=== PATIENT | male | born 1940 | race Caucasian/White ===

== ENCOUNTER 2017-12-18 14:48 | Emergency (ER) | payer MEDICARE, BC ==
[~2017-12-18] VITALS: Ht 182.9 cm; Wt 87.1 kg
[~2017-12-18 14:48] MED LIST: ALLO100T70 PO; BENA10TA4 PO; BUSP15TA69 PO; CYCL-277 PO; DILT180C11 PO; FLU60SYR30 IM ONLY; INDO75CA PO; OMEP-218 PO; PRAV20TA65 PO; PRED20TA6 PO; TAMS0.4C25 PO
[2017-12-18] MEDS ORDERED: PRED20TA6 PO (14:57)
--- NOTE | 2017-12-18 15:05 | ER Report ---
History and Physical Time Seen By MD: 14:55 Hx. of Stated Complaint: RIGHT ANKLE INJURY HPI/ROS CHIEF COMPLAINT: R ANKLE PAIN HISTORY OF PRESENT ILLNESS: Pt was walking in his crocks and accidentally inverted his right foot which caused immediate pain in his right lateral ankle. Pt denies pain in foot or knee. No numbness. REVIEW OF SYSTEMS: Neuro: no numbness or parathesias Musculoskeletal: + ankle pain Allergies: Coded Allergies: Penicillins (Verified Allergy, Unknown, 06/03/17) Sulfa (Sulfonamide Antibiotics) (Verified Allergy, Unknown, 06/03/17) benazepril (Verified Allergy, Unknown, 06/03/17) Home Meds Reported Medications Prednisone (PREDNISONE) 20 Mg Tablet, 20 MG PO QDAY, TAB 12/18/17 Tamsulosin Hcl (FLOMAX) 0.4 Mg Cap.er.24h, 0.4 MG PO QDAY, CAP 06/03/17 Buspirone Hcl (BUSPIRONE HCL) 15 Mg Tablet, 15 MG PO BID 06/03/17 Discontinued Reported Medications Indomethacin (INDOMETHACIN) 75 Mg Capsule.er, 75 MG PO QDAY 06/03/17 Discontinued Scripts Diltiazem HCl (Diltiazem 24Hr Cd) 180 Mg Cap.er.24h, 1 CAP PO DAILY, #30 CAP 0 Refills Prov:ZACH WATTS MD 06/02/17 Past Medical/Surgical History Pmhx: Bulous pemphigus Pshx: neg Reviewed Nurses Notes: Yes Old Medical Records Reviewed: Yes Smoking Status: Former Smoker Hx Alcohol Use: No Constitutional Vital Sign - Last 24 Hours 12/18/17 12/18/17 14:55 15:52 Temp 98.1 Pulse 91 69 Resp 18 14 B/P (MAP) 148/69 141/93 (109) Pulse Ox 93 90 O2 Delivery Room Air Room Air Physical Exam General appearance: alert no distress Right ankle: There is moderate swelling left lateral maleolus . There is no obvious deformity to the ankle. There is moderate tenderness to the lateral malleolus. Ankle joint is stable and there is no tenderness over the achilles tendon. The foot is non-tender without swelling. Neurologic exam: The patient has normal sensation distal to the injury. Vascular exam: Normal pulses and capillary refill in the foot DIFFERENTIAL DIAGNOSIS: After history and physical exam differential diagnosis was considered for ankle injury including sprain, fracture, dislocation and soft tissue injury. Medical Decision Making ED Course/Re-evaluation ED Course Will xray to rule out fx. PT has no fibular head tenderness so will limit xray to ankle x 12/18/2017 3:43:26 pm xray stable for bone but suspect ligament injury. pt refusing crutches so will place in airsplint and follow up with ortho Decision to Disposition Date: Dec 18, 2017 Decision to Disposition Time: 15:43 Depart Departure Latest Vital Signs Vital Signs Date Time Temp Pulse Resp B/P (MAP) Pulse Ox O2 Delivery O2 Flow Rate FiO2 12/18/17 15:52 69 14 141/93 (109) 90 Room Air 12/18/17 14:55 98.1 Impression: Primary Impression: SPRAIN OF UNSPECIFIED LIGAMENT OF RIGHT ANKLE, INIT ENCNTR Condition: Improved Disposition: HOME OR SELF-CARE Referrals: ZACH WATTS MD (PCP) [facility] Days Patient Instructions: Ankle Sprain (GEN) Additional Instructions: You do not have a fracture of your ankle. You could have injured a ligament. Use air cast for comfort and support Follow up with orthopedics if not improving. Ice, elevate and rest your ankle NIVIA SETHI DO Dec 18, 2017 15:05
--- NOTE | 2017-12-18 15:31 | RADIOLOGY IMAGING REPORT ---
[place] [facility] [place] Misbah Paul : 1940 MR: [id number] V: [id number] EXAM DATE: ORDERING PHYSICIAN: NIVIA SEHTI TECHNOLOGIST: Location: [facility] [place] Patient: Misbah Paul : 1940 Visit/Account:[id number] Date of Sevice: 12/18/2017 ANKLE 3 VIEW MIN RIGHT Indication: Tripped while walking. Comparison: None. Findings: The distal tibia, distal fibula, talus are intact. Mortise is preserved. Calcaneus is unrem arkable. Atherosclerotic changes seen in the posterior tibial artery. There is soft tissue swelling a djacent to lateral malleolus. IMPRESSION: 1. No evidence of fracture or dislocation. 2. Soft tissue swelling adjacent to the lateral malleolus. Report Dictated By: Miller Lemon at 12/18/2017 3:25 PM Report E-Signed By: Miller Lemon at 12/18/2017 3:26 PM [id number]
[2017-12-18 15:52] VITALS: BP 141/93
== END 2017-12-18 16:00 | disposition home or self-care (01) ==
LOC: ER 15:02
DX: S93.401A Sprain of unspecified ligament of right ankle, initial encounter (principal)
CPT/HCPCS: 73610; 99282; L1930

== ENCOUNTER 2018-01-01 19:43 | Inpatient (IN) | payer MEDICARE, BC ==
[~2018-01-01] VITALS: Ht 182.9 cm; Wt 86.0 kg
[~2018-01-01 19:43] MED LIST changes: -DOCU-202 PO; -FURO-45 PO; -HYDR10TA3 PO; -IBUP600T22 PO; -MINO100C27 PO; -NIAC500T84 PO; -OMEP-125 PO; -PANT40TA65 PO; -PER PO; -POTA20TA94 PO
[2018-01-01] MEDS ORDERED: NS(*) 0.9% 1000 ML BAG 1,000 ML IV ONE (19:50)
[2018-01-01 19:58] LABS: PLATELET COUNT, AUTOMATED 134 K/uL (150-450)
[2018-01-01] MEDS ORDERED: IOPAMIDOL 76% 75 ML INFUS BTL 75 ML ONE (20:19)
[2018-01-01] MEDS ORDERED: fentaNYL CITR 100 MCG/2 ML AMP IVP ONE (20:45)
--- NOTE | 2018-01-01 21:27 | RADIOLOGY IMAGING REPORT ---
FACILITY: [facility] PATIENT NAME: Misbah Paul : 1940 MR: [id number] V: [id number] EXAM DATE: ORDERING PHYSICIAN: IZZY WILDER TECHNOLOGIST: Location: [facility] [place] Patient: Misbah Paul : 1940 Visit/Account:[id number] Date of Sevice: 01/01/2018 EXAMINATION: CT chest, abdomen, and pelvis with IV contrast HISTORY: Skiing accident. Right flank pain and back pain. TECHNIQUE: Axial CT images of the chest, abdomen, and pelvis were obtained with IV contrast, with c oronal and sagittal 2D reconstructed images. One of the following dose optimization techniques was utilized in the performance of this exam: Autom ated exposure control; adjustment of the mA and/or kV according to the patient's size; or use of an i terative reconstruction technique. Specific details can be referenced in the facility's radiology C T exam operational policy. Contrast: 75 mL of IV Isovue-370. COMPARISON: None. FINDINGS: Chest: Lungs and pleura: Trace amount of layering pleural fluid on the right, with right basilar atelectasi s. There is mild patchy airspace disease in the right middle lobe, suspicious for pulmonary contusion . The left lung is clear. No pneumothorax. Mediastinum and clarita: Small hiatal hernia. Heart, aorta, and great vessels: No evidence of traumatic aortic injury. Normal heart size. No peric ardial effusion. Chest lymph node assessment: Negative. Bones: Multiple right-sided rib fractures. There are nondisplaced fractures of the posterior right s econd, third, fourth, fifth, and sixth ribs near the costovertebral junctions. There are additional f ractures of the posterolateral right fourth, fifth, sixth, and seventh ribs with mild displacement of the fifth and sixth rib fractures. There are nondisplaced fractures of the anterior right third and fourth ribs near the costochondral junctions. No visualized left rib fracture. No evidence of acute fracture along the thoracic spine. Normal align ment. Vertebral body height is maintained. The sternum is intact. Chest wall: Negative. Lower neck: Negative. Abdomen/pelvis: Liver: Several small parenchymal cysts in the liver. No evidence of a traumatic liver injury. Gallbladder and bile ducts: Negative. Spleen: Negative. Pancreas: Negative. Adrenal glands: Negative. Kidneys: Small bilateral renal cysts. The kidneys enhance normally. No retroperitoneal fluid or hemo rrhage. Bowel and peritoneum: The small bowel and colon are normal in caliber. No bowel wall thickening. Sca ttered colonic diverticulosis. Normal appendix in the right lower quadrant. No free fluid or free int raperitoneal air. Pelvic structures: Negative. Lymph node assessment: Negative. Vessels: Mild vascular calcifications. Normal caliber abdominal aorta. Musculoskeletal: No evidence of acute fracture in the lumbar spine or bony pelvis. Scattered degene rative changes along the lumbar spine. Body wall: Negative. IMPRESSION: 1. Multiple right-sided rib fractures. There are nondisplaced fractures of the anterior right 3rd and 4th ribs, nondisplaced fractures of the posterior right 2nd through 6th ribs near the costovertebral junction, and fractures of the posterolateral right 4th through 7th ribs with mild displacement of t he 5th and 6th rib fractures. 2. Trace amount of layering right pleural fluid. No pneumothorax. 3. Mild patchy airspace disease in the right middle lobe, suspicious for pulmonary contusion. Additio nal atelectasis in the right lung base. 4. No acute traumatic findings in the abdomen or pelvis. Findings were discussed with IZZY WILDER at 01/01/2018 9:22 PM. Report Dictated By: Virgilio Reina MD at 01/01/2018 9:04 PM Report E-Signed By: Virgilio Reina MD at 01/01/2018 9:22 PM WSN:[id number]
[2018-01-01] MEDS ORDERED: NS(*) 0.9% 1000 ML BAG 1,000 ML IV PRN (21:41)
--- NOTE | 2018-01-01 21:42 | ER Report ---
History and Physical Time Seen By MD: 19:45 Hx. of Stated Complaint: SKI ACCIDENT. RIGHT SIDED LOWER BACK PAIN. HPI/ROS CHIEF COMPLAINT: Right rib and flank pain after ski accident HISTORY OF PRESENT ILLNESS: 77-year-old male, healthy male was skiing today. He crashed at a significant rate of speed. He fell onto his right side. This follows an and no. He was able to get up and ski off the mountain. He actually went home. This evening he fell on the floor, was unable to get up due to severe the pain in his ribs. His was unable to help him up. She called 911. EMS brought him in. He had stable vital signs stable, pulse ox on arrival. Patient complains of some right shoulder pain, but he demonstrates good range of motion. REVIEW OF SYSTEMS: Respiratory: As above Cardiovascular: As above Gastrointestinal: No vomiting, no abdominal pain. Musculoskeletal: No back pain. Allergies: Coded Allergies: Penicillins (Verified Allergy, Unknown, 01/01/18) Sulfa (Sulfonamide Antibiotics) (Verified Allergy, Unknown, 01/01/18) benazepril (Verified Allergy, Unknown, 01/01/18) Home Meds Reported Medications Prednisone (PREDNISONE) 20 Mg Tablet, 10 MG PO QDAY, TAB 12/18/17 Tamsulosin Hcl (FLOMAX) 0.4 Mg Cap.er.24h, 0.4 MG PO QDAY, CAP 06/03/17 Buspirone Hcl (BUSPIRONE HCL) 15 Mg Tablet, 15 MG PO QHS 06/03/17 Past Medical/Surgical History Past Medical History Cardiovascular: Reports hx of: hyperlipidemia hypertension Genitourinary: Reports hx of: benign prostatic hypertro Musculoskeletal: Reports hx of: gout Past Surgical History Right Shoulder rotator cuff repair Additional Cardio surgeries Reviewed Nurses Notes: Yes Old Medical Records Reviewed: Yes Smoking Status: Former Smoker Hx Substance Use Disorder: No Hx Alcohol Use: No Constitutional Vital Sign - Last 24 Hours 01/01/18 01/01/18 01/01/18 01/01/18 19:45 19:46 19:58 20:00 Temp 99.2 Pulse 71 76 Resp 14 B/P (MAP) 147/77 147/77 (100) 129/72 (91) Pulse Ox 92 94 O2 Delivery Room Air 01/01/18 01/01/18 01/01/18 01/01/18 20:13 20:43 20:54 20:58 Pulse 70 77 86 B/P (MAP) 155/83 (107) Pulse Ox 94 92 91 01/01/18 01/01/18 01/01/18 01/01/18 21:00 21:13 21:18 21:30 Pulse 81 77 B/P (MAP) 130/68 (88) 136/81 (99) Pulse Ox 94 01/01/18 01/01/18 21:33 21:48 Pulse 70 72 Pulse Ox 94 93 Physical Exam General Appearance: The patient is alert, has no immediate need for airway protection and no current signs of toxicity. Vital signs stable, afebrile, palpation of the head and neck reveal no tenderness or trauma. [Eyes:] [Pupils equal and round no injection.] Respiratory: [Chest is non tender, lungs are clear to auscultation.] Cardiac: [regular rate and rhythm] [ ] Gastrointestinal: [Abdomen is soft and non tender, no masses, bowel sounds normal.] [Musculoskeletal:] [Neck:] [Neck is supple and non tender.] [Extremities have full range of motion and are non tender.] [Skin:] [No rashes or lesions.] [ ] [DIFFERENTIAL DIAGNOSIS: After history and physical exam differential diagnosis was considered for] [ ] Medical Decision Making Data Points Result Diagram: 01/01/18193701/01/181937 Laboratory Hematology Test 01/01/18 19:38 Red Blood Count 5.27 M/uL (4.00-5.60) Mean Corpuscular Volume 92.1 fL (80.0-96.0) Mean Corpuscular Hemoglobin 31.2 pg (26.0-33.0) Mean Corpuscular Hemoglobin Concent 33.9 g/dL (32.0-36.0) Red Cell Distribution Width 14.8 % (11.5-14.5) Mean Platelet Volume 8.0 fL (7.2-11.1) Neutrophils (%) (Auto) 85.0 % (39.4-72.5) Lymphocytes (%) (Auto) 5.1 % (17.6-49.6) Monocytes (%) (Auto) 8.9 % (4.1-12.4) Eosinophils (%) (Auto) 0.7 % (0.4-6.7) Basophils (%) (Auto) 0.3 % (0.3-1.4) Nucleated RBC Relative Count (auto) 0.1 /100WBC Neutrophils # (Auto) 14.2 K/uL (2.0-7.4) Lymphocytes # (Auto) 0.8 K/uL (1.3-3.6) Monocytes # (Auto) 1.5 K/uL (0.3-1.0) Eosinophils # (Auto) 0.1 K/uL (0.0-0.5) Basophils # (Auto) 0.0 K/uL (0.0-0.1) Nucleated RBC Absolute Count (auto) 0.01 K/uL Sodium Level 137 mmol/L (137-145) Potassium Level 3.5 mmol/L (3.5-5.0) Chloride Level 98 mmol/L (98-107) Carbon Dioxide Level 27 mmol/L (22-30) Blood Urea Nitrogen 23 mg/dl (9-21) Creatinine 0.90 mg/dl (0.66-1.25) Glomerular Filtration Rate Calc > 60.0 Random Glucose 105 mg/dl (75-110) Calcium Level 9.3 mg/dl (8.4-10.2) Total Bilirubin 0.6 mg/dl (0.2-1.3) Aspartate Amino Transf (AST/SGOT) 54 U/L (0-35) Alanine Aminotransferase (ALT/SGPT) 68 U/L (0-56) Alkaline Phosphatase 65 U/L (0-126) Total Protein 7.2 gm/dl (6.3-8.2) Albumin 4.2 g/dl (3.5-5.0) Chemistry Test 01/01/18 19:38 White Blood Count 16.7 k/uL (4.5-11.0) Red Blood Count 5.27 M/uL (4.00-5.60) Hemoglobin 16.5 g/dL (14.0-18.0) Hematocrit 48.5 % (42.0-52.0) Mean Corpuscular Volume 92.1 fL (80.0-96.0) Mean Corpuscular Hemoglobin 31.2 pg (26.0-33.0) Mean Corpuscular Hemoglobin Concent 33.9 g/dL (32.0-36.0) Red Cell Distribution Width 14.8 % (11.5-14.5) Platelet Count 134 K/uL (150-450) Mean Platelet Volume 8.0 fL (7.2-11.1) Neutrophils (%) (Auto) 85.0 % (39.4-72.5) Lymphocytes (%) (Auto) 5.1 % (17.6-49.6) Monocytes (%) (Auto) 8.9 % (4.1-12.4) Eosinophils (%) (Auto) 0.7 % (0.4-6.7) Basophils (%) (Auto) 0.3 % (0.3-1.4) Nucleated RBC Relative Count (auto) 0.1 /100WBC Neutrophils # (Auto) 14.2 K/uL (2.0-7.4) Lymphocytes # (Auto) 0.8 K/uL (1.3-3.6) Monocytes # (Auto) 1.5 K/uL (0.3-1.0) Eosinophils # (Auto) 0.1 K/uL (0.0-0.5) Basophils # (Auto) 0.0 K/uL (0.0-0.1) Nucleated RBC Absolute Count (auto) 0.01 K/uL Glomerular Filtration Rate Calc > 60.0 Calcium Level 9.3 mg/dl (8.4-10.2) Total Bilirubin 0.6 mg/dl (0.2-1.3) Aspartate Amino Transf (AST/SGOT) 54 U/L (0-35) Alanine Aminotransferase (ALT/SGPT) 68 U/L (0-56) Alkaline Phosphatase 65 U/L (0-126) Total Protein 7.2 gm/dl (6.3-8.2) Albumin 4.2 g/dl (3.5-5.0) EKG/Imaging Imaging Results: CT scan of the chest, abdomen and pelvis with IV contrast was obtained. The results of the study are EXAMINATION: CT chest, abdomen, and pelvis with IV contrast HISTORY: Skiing accident. Right flank pain and back pain. TECHNIQUE: Axial CT images of the chest, abdomen, and pelvis were obtained with IV contrast, with coronal and sagittal 2D reconstructed images. One of the following dose optimization techniques was utilized in the performance of this exam: Automated exposure control; adjustment of the mA and/ or kV according to the patient's size; or use of an iterative reconstruction technique. Specific details can be referenced in the facility's radiology CT exam operational policy. Contrast: 75 mL of IV Isovue-370. COMPARISON: None. FINDINGS: Chest: Lungs and pleura: Trace amount of layering pleural fluid on the right, with right basilar atelectasis. There is mild patchy airspace disease in the right middle lobe, suspicious for pulmonary contusion. The left lung is clear. No pneumothorax. Mediastinum and clarita: Small hiatal hernia. Heart, aorta, and great vessels: No evidence of traumatic aortic injury. Normal heart size. No pericardial effusion. Chest lymph node assessment: Negative. Bones: Multiple right-sided rib fractures. There are nondisplaced fractures of the posterior right second, third, fourth, fifth, and sixth ribs near the costovertebral junctions. There are additional fractures of the posterolateral right fourth, fifth, sixth, and seventh ribs with mild displacement of the fifth and sixth rib fractures. There are nondisplaced fractures of the anterior right third and fourth ribs near the costochondral junctions. No visualized left rib fracture. No evidence of acute fracture along the thoracic spine. Normal alignment. Vertebral body height is maintained. The sternum is intact. Chest wall: Negative. Lower neck: Negative. Abdomen/pelvis: Liver: Several small parenchymal cysts in the liver. No evidence of a traumatic liver injury. Gallbladder and bile ducts: Negative. Spleen: Negative. Pancreas: Negative. Adrenal glands: Negative. Kidneys: Small bilateral renal cysts. The kidneys enhance normally. No retroperitoneal fluid or hemorrhage. Bowel and peritoneum: The small bowel and colon are normal in caliber. No bowel wall thickening. Scattered colonic diverticulosis. Normal appendix in the right lower quadrant. No free fluid or free intraperitoneal air. Pelvic structures: Negative. Lymph node assessment: Negative. Vessels: Mild vascular calcifications. Normal caliber abdominal aorta. Musculoskeletal: No evidence of acute fracture in the lumbar spine or bony pelvis. Scattered degenerative changes along the lumbar spine. Body wall: Negative. IMPRESSION: 1. Multiple right-sided rib fractures. There are nondisplaced fractures of the anterior right 3rd and 4th ribs, nondisplaced fractures of the posterior right 2nd through 6th ribs near the costovertebral junction, and fractures of the posterolateral right 4th through 7th ribs with mild displacement of the 5th and 6th rib fractures. 2. Trace amount of layering right pleural fluid. No pneumothorax. 3. Mild patchy airspace disease in the right middle lobe, suspicious for pulmonary contusion. Additional atelectasis in the right lung base. 4. No acute traumatic findings in the abdomen or pelvis. The study was read by the radiologist. I viewed the images myself on the PACS system. ED Course/Re-evaluation Clinical Indication for ER IV: Hydration, IV Access ED Course Patient was admitted to an examination room. H&P was done. The differential diagnoses was considered. On clinical examination. Patient has significant right-sided chest wall pain. A CT scan is ordered. CT scan shows numerous rib fractures with a small amount of fluid, no pneumothorax. Patient received IV fluids and fentanyl 50 g IV. His CAT scan results are discussed with Dr. Grimes, general surgeon, who accepts him for admission for pain control. 01/01/2018 9:39:03 pm case discussed with Dr. Js Grimes general surgery who accepts the patient for admission for management of multiple right rib fractures Decision to Disposition Date: Jan 01, 2018 Decision to Disposition Time: 21:37 Depart Departure Latest Vital Signs Vital Signs Date Time Temp Pulse Resp B/P (MAP) Pulse Ox O2 Delivery O2 Flow Rate FiO2 01/01/18 21:48 72 93 01/01/18 21:30 136/81 (99) 01/01/18 19:45 99.2 14 Room Air Impression: Primary Impression: Multiple rib fractures Additional Impression: Injury due to skiing accident Condition: Improved Disposition: Admitted from ER Problem Qualifiers Primary Impression: Multiple rib fractures Encounter type: initial encounter Fracture type: closed Laterality: right Qualified Codes: S22.41XA - Multiple fractures of ribs, right side, initial encounter for closed fracture Additional Impression: Injury due to skiing accident Encounter type: initial encounter Qualified Codes: V00.328A - Other snow- ski accident, initial encounter IZZY WILDER DO Jan 01, 2018 21:42
[2018-01-01] MEDS ORDERED: ONDANSETRON 4 MG/2 ML VIAL IVP PRN (21:45)
[2018-01-01] MEDS ORDERED: FLUSH 10 ML SYR IVP PRN (21:45)
[2018-01-01] MEDS ORDERED: NALOXONE HCL 0.4 MG/ML VIAL IVP PRN (21:45)
[2018-01-01] MEDS ORDERED: HYDROmorphone PCA 6 MG/30 ML IV PRN (21:45)
[2018-01-01 23:00] VITALS: BP 164/82
[2018-01-01] MEDS: ACETAMINOPHEN(*)1000 MG/100 ML 100 ML IVPB SCH (23:58)
[2018-01-02] MEDS ORDERED: KETOROLAC 30 MG/ML VIAL IVP SCH
[2018-01-02] MEDS: KETOROLAC 30 MG/ML VIAL IVP SCH ×3 (00:07→12:00)
[2018-01-02 04:33] VITALS: BP 152/97
--- NOTE | 2018-01-02 05:19 | RADIOLOGY IMAGING REPORT ---
FACILITY: [facility] PATIENT NAME: Misbah Paul : 1940 MR: [id number] V: [id number] EXAM DATE: ORDERING PHYSICIAN: RAVIN TIERNEY TECHNOLOGIST: [facility] Patient: Misbah Paul : 1940 Visit/Account:[id number] Date of Sevice: 01/02/2018 Portable chest: Indication: Trauma. Technique: A single frontal film was obtained. Comparison: CT scan dated 01/01/2018. Skeletal and soft tissue structures: There are minimally displaced fractures in the right fourth, fif th, and sixth ribs. Otherwise unremarkable. Heart and mediastinum: Within normal limits. Lung ballesteros: Well expanded. There are minimal linear opacities at the bases, compatible with atelecta sis. Pleural spaces: No evidence of pneumothorax or effusion. Impression: Acute right rib fractures. Minimal basilar atelectasis. No evidence of pneumothorax. Report Dictated By: Wesley Mooney MD at 01/02/2018 5:11 AM Report E-Signed By: Wesley Mooney MD at 01/02/2018 5:15 AM WSN:[id number]
[2018-01-02] MEDS: ACETAMINOPHEN(*)1000 MG/100 ML 100 ML IVPB SCH ×2 (06:06→12:01)
[2018-01-02 06:17] LABS: PLATELET COUNT, AUTOMATED 107 K/uL (150-450)
[2018-01-02 08:13] VITALS: BP 128/86
[2018-01-02] MEDS ORDERED: PANTOPRAZOLE SOD 40 MG IV VIAL IVP SCH (09:00)
--- NOTE | 2018-01-02 09:27 | Gen Surgery History & Physical ---
History of Present Illness Chief Complaint Right chest pain History of Present Illness 77yo male presents to the ER with severe right chest pain. [place] "c[place] an edge" and fell on his right side. He got up and skied the rest of the way down and got in his car and drove home. When he got home, he "could hardly get out of" his car due to pain and so came in to the ER for evaluation. He was found on CT to have multiple nondisplaced and minimally displaced right rib fractures and a pulmonary contusion. No other injuries were found. He was recommended for admission for pain control and pulmonary hygiene. No LOC, no other complaints. History Problems: (1) Bullous pemphigus Status: Chronic (2) BPH (benign prostatic hyperplasia) Status: Chronic Home Meds Reported Medications Prednisone (PREDNISONE) 20 Mg Tablet, 10 MG PO QDAY, TAB 12/18/17 Tamsulosin Hcl (FLOMAX) 0.4 Mg Cap.er.24h, 0.4 MG PO QDAY, CAP 06/03/17 Buspirone Hcl (BUSPIRONE HCL) 15 Mg Tablet, 15 MG PO QHS 06/03/17 Allergies: Coded Allergies: Penicillins (Verified Allergy, Unknown, 01/01/18) Sulfa (Sulfonamide Antibiotics) (Verified Allergy, Unknown, 01/01/18) benazepril (Verified Allergy, Unknown, 01/01/18) Patient History: FH: AR (myocardial infarction) FATHER Review of Systems All Systems Reviewed/Normal: Yes, Except as Noted Cardiovascular: Chest Pain Exam General Appearance: Alert, Awake, No Acute Distress, Afebrile Neuro: No Gross deficits Eyes: PERRLA ENT: Oropharynx Clear Neck: No Masses Cardiovascular: Regular Rate and Rhythm Respiratory: Clear to Auscultation Chest: Other (Right chest wall TTP) GI: Abd Soft and Non-Tender Musculoskeletal: No Weakness/Pain Extremities: Warm, Perfused Integumentary: Skin Intact without Lesion / Mass Psych: Appropriate Mood & Affect Medical Decision Making Data Points Result Diagram: 01/02/18 0600 01/02/18 0600 Assessment and Plan Problems: (1) Multiple rib fractures Status: Acute Assessment & Plan: 01/02/18: Admit, pain control, aggressive pulmonary hygiene , ambulation. Injuries and plan explained to Mr. Paul and he seems to understand and agree with the plan. He reports that he is a lot more comfortable today when compared to yesterday. He is sating low 90s on room air. (2) Injury due to skiing accident Status: Acute Condition Stable Time Spent: < 30 min Venous Thromboembolism VTE Risk Physician Assess for VTE Risk: Yes Patient's VTE Risk: Low VTE Diagnostic Test 2 Days Prior to Admit: No Antithrombotics Is Pt On Any Antithrombotics?: Yes Problem Qualifiers (1) Multiple rib fractures: Encounter type: initial encounter Fracture type: closed Laterality: right Qualified Codes: S22.41XA - Multiple fractures of ribs, right side, initial encounter for closed fracture (2) Injury due to skiing accident: Encounter type: initial encounter Qualified Codes: V00.328A - Other snow-ski accident, initial encounter RAVIN TIERNEY MD Jan 02, 2018 09:27
[2018-01-02] MEDS: ENOXAPARIN 40 MG/0.4ML SYR SC SCH (09:32)
[2018-01-02] MEDS: DOCUSATE SODIUM 100 MG CAP PO SCH ×2 (09:32→20:32)
[2018-01-02] MEDS: predniSONE 10 MG TAB PO SCH (09:53)
[2018-01-02 11:32] VITALS: Ht 182.9 cm; Wt 86.0 kg
[2018-01-02] MEDS ORDERED: HYDR10TA3 PO (11:43)
[2018-01-02] MEDS ORDERED: MINO100C27 PO (11:44)
[2018-01-02] MEDS ORDERED: OMEP-125 PO (11:45)
[2018-01-02] MEDS ORDERED: NIAC500T84 PO (11:47)
[2018-01-02 11:53] VITALS: BP 137/76
[2018-01-02 15:21] VITALS: BP 144/71
[2018-01-02] MEDS: PANTOPRAZOLE SOD 40 MG TABEC PO SCH (20:32)
[2018-01-02] MEDS: NIACINAMIDE 500 MG TAB PO SCH (20:32)
[2018-01-02] MEDS: MINOCYCLINE HCL 100 MG CAP PO SCH (20:32)
[2018-01-02] MEDS ORDERED: busPIRone HCL 5 MG TAB PO SCH (21:00)
[2018-01-02] MEDS ORDERED: TAMSULOSIN HCL 0.4 MG CAP PO SCH (21:00)
[2018-01-02] MEDS ORDERED: HYDROXYZINE HCL 10 MG/5 ML PO SCH (21:00)
[2018-01-02 21:39] VITALS: BP 131/73
[2018-01-02 22:54] VITALS: BP 133/76
[2018-01-03 03:07] VITALS: BP 133/76
[2018-01-03 06:52] VITALS: BP 122/63
[2018-01-03] MEDS: DOCUSATE SODIUM 100 MG CAP PO SCH (08:51)
[2018-01-03] MEDS: MINOCYCLINE HCL 100 MG CAP PO SCH (08:51)
[2018-01-03] MEDS: predniSONE 10 MG TAB PO SCH (08:51)
[2018-01-03] MEDS: NIACINAMIDE 500 MG TAB PO SCH (08:51)
[2018-01-03] MEDS: PANTOPRAZOLE SOD 40 MG TABEC PO SCH (08:51)
[2018-01-03] MEDS: ENOXAPARIN 40 MG/0.4ML SYR SC SCH (08:52)
[2018-01-03 11:02] VITALS: BP 125/68
[2018-01-03] MEDS ORDERED: PER PO (13:32)
[2018-01-03] MEDS ORDERED: DOCU-202 PO (13:32)
--- NOTE | 2018-01-03 13:38 | Short(Outpt) Discharge Summary ---
Discharge Summary Reason for Hosp/Final Diag: (1) Multiple rib fractures Status: Acute Hospital Course & Plan: 01/02/18: Admit, pain control, aggressive pulmonary hygiene, ambulation. Injuries and plan explained to Mr. Paul and he seems to understand and agree with the plan. He reports that he is a lot more comfortable today when compared to yesterday. He is sating low 90s on room air. 01/03/18: Pt is doing well with good pain control on PO meds. He wishes to go home. Will d/c to home on home O2 and instructions provided for aggressive pulmonary hygiene at home. (2) Injury due to skiing accident Status: Acute Departure Discharge to: Home, Self Care Discharge Instructions Home Meds Active Scripts Oxycodone/Acetaminophen (OXYCODONE/ACETAMINOPHEN 5MG/325 MG) 5 Mg/325 Mg Tab, 1- 2 TAB PO Q4H Y for PAIN, #40 TAB 0 Refills Prov:RAVIN TIERNEY MD 01/03/18 Docusate Sodium (DOCUSATE SODIUM) 100 Mg Capsule, 1 CAP PO BID, #30 CAPSULE 0 Refills Prov:RAVIN TIERNEY MD 01/03/18 Reported Medications Niacinamide (NIACINAMIDE) 500 Mg Tablet, 500 MG PO BID 01/02/18 Omeprazole (OMEPRAZOLE) 20 Mg Capsule.dr, 1 CAP PO QDAY, CAP 01/02/18 Minocycline Hcl (MINOCYCLINE HCL) 100 Mg Capsule, 100 MG PO BID, CAPSULE 01/02/18 Hydroxyzine Hcl (HYDROXYZINE HCL) 10 Mg Tablet, 10 MG PO QHS 01/02/18 Prednisone (PREDNISONE) 20 Mg Tablet, 10 MG PO QDAY, TAB 12/18/17 Buspirone Hcl (BUSPIRONE HCL) 15 Mg Tablet, 15 MG PO QHS 06/03/17 Discontinued Reported Medications Tamsulosin Hcl (FLOMAX) 0.4 Mg Cap.er.24h, 0.4 MG PO QDAY, CAP 06/03/17 Follow up Referrals: General Surgery - 01/11/18 @ Surgery, General with Ravin Tierney Md You have a follow up appointment scheduled with Dr. Tierney on 01/11/18, at 4:30pm. Diet: Regular Activity: As Tolerated Special Instructions: Work on deep breathing exercises and use the incentive spirometer frequently throughout the day while you are awake. Wear the oxygen at all times until you can keep your blood oxygen level above 90% without the oxygen (we will check this in the office). I anticipate that you will no longer need the oxygen as your pain improves and your activity level returns to normal. Problem Qualifiers (1) Multiple rib fractures: Encounter type: initial encounter Fracture type: closed Laterality: right Qualified Codes: S22.41XA - Multiple fractures of ribs, right side, initial encounter for closed fracture (2) Injury due to skiing accident: Encounter type: initial encounter Qualified Codes: V00.328A - Other snow-ski accident, initial encounter RAVIN TIERNEY MD Jan 03, 2018 13:38
== END 2018-01-03 14:35 | disposition home or self-care (01) | DRG 184 ==
LOC: ER 19:49 → MED 21:50
PROVIDERS: ADMIT Surgery; ATTEND Surgery
DX: S22.41XA Multiple fractures of ribs, right side, initial encounter for closed fracture (principal); L12.0 Bullous pemphigoid; N40.0 Benign prostatic hyperplasia without lower urinary tract symptoms; I10 Essential (primary) hypertension; Z87.891 Personal history of nicotine dependence; M1A.9XX0 Chronic gout, unspecified, without tophus (tophi); E78.5 Hyperlipidemia, unspecified; V00.321A Fall from snow-skis, initial encounter; Y93.23 Activity, snow (alpine) (downhill) skiing, snowboarding, sledding, tobogganing and snow tubing; Y92.39 Other specified sports and athletic area as the place of occurrence of the external cause; Y99.8 Other external cause status; Z88.0 Allergy status to penicillin; Z88.2 Allergy status to sulfonamides; Z88.8 Allergy status to other drugs, medicaments and biological substances
CPT/HCPCS: 36415; 71045; 71260; 74177; 82040; 82247; 82310; 82374; 82435; 82565; 82947; 84075; 84132; 84155; 84295; 84450; 84460; 84520; 85025; 96361; 96374; 97161; 99285; C9113; J0131; J1170; J1650; J1885; J3010; J7030; J7512; Q9967

== ENCOUNTER → 2018-01-01 | Outpatient (CLI) | payer MEDICARE, BC ==
[~2018-01-01] MED LIST changes: +DOCU-202 PO; +FURO-45 PO; +HYDR10TA3 PO; +IBUP600T22 PO; +MINO100C27 PO; +NIAC500T84 PO; +OMEP-125 PO; +PANT40TA65 PO; +PER PO; +POTA20TA94 PO
[2018-01-02 11:32] VITALS: BMI 25.6
== END ==
LOC: AMB 19:15
PROVIDERS: ATTEND Nurse Practitioner
DX: M54.5 Low back pain (principal)
CPT/HCPCS: A0425; A0427

== ENCOUNTER 2018-01-08 14:13 | Emergency (ER) | payer MEDICARE, BC ==
[2018-01-02 11:32] VITALS: Wt 86.0 kg
[~2018-01-08 14:13] MED LIST changes: +DOCU-202 PO; +FURO-45 PO; +HYDR10TA3 PO; +MINO100C27 PO; +NIAC500T84 PO; +OMEP-125 PO; +PER PO; +POTA20TA94 PO
--- NOTE | 2018-01-08 14:59 | EKG ---
FACILITY: [facility] PATIENT NAME: WILD CARCAMO : [id number] MR: [id number] V: [id number] EXAM DATE: ORDERING PHYSICIAN: UCHE VICTORIA TECHNOLOGIST: MRAKELL Navas Reason : NEURO Blood Pressure : / mmHG Vent. Rate : 066 BPM Atrial Rate : 066 BPM P-R Int : 160 ms QRS Dur : 084 ms QT Int : 380 ms P-R-T Axes : 061 051 030 degrees QTc Int : 398 ms Sinus rhythm Possible left atrial enlargement Artifact in a few leads - repeat if needed No previous ECGs available Confirmed by SYDNEY HENRY ([id number]) on 01/09/2018 5:46:50 AM Referred By: ISAAK Confirmed By:SYDNEY HENRY
[2018-01-08 15:03] LABS: PLATELET COUNT, AUTOMATED 215 K/uL (150-450)
--- NOTE | 2018-01-08 15:45 | RADIOLOGY IMAGING REPORT ---
FACILITY: [facility] - [place] PATIENT NAME: Misbah Paul : 1940 MR: [id number] V: [id number] EXAM DATE: ORDERING PHYSICIAN: UCHE VICTORIA TECHNOLOGIST: [place] [facility] [place] Misbah Paul : 1940 Visit/Account:[id number] Date of Sevice: 01/08/2018 Exam type: CHEST PA AND LAT History: Cough and rib fractures Comparison: January 02, 2018. Findings: Multiple right-sided rib fractures are again noted. There is increased pleural density along the lat eral aspect of the right mid thorax adjacent to the fractures. There is no evidence of pneumothorax. There is a small right pleural effusion. There is a mild increase in the bibasilar atelectasis. C ardiac silhouette is normal in size. IMPRESSION: 1. Multiple right-sided rib fractures again noted with increased pleural density along the lateral a spect right mid thorax adjacent to the fractures. This may represent pleural reaction or hemorrhage No evidence of pneumothorax Small right pleural effusion Mild increase in the bibasilar atelectasis Report Dictated By: Arlette Delcid MD at 01/08/2018 3:38 PM Report E-Signed By: Arlette Delcid MD at 01/08/2018 3:41 PM WSN:[id number]
[2018-01-08 16:00] VITALS: BP 116/66
--- NOTE | 2018-01-08 16:48 | RADIOLOGY IMAGING REPORT ---
[place] [facility] [place] NAME: Misbah Paul : 1940 MR: [id number] V: [id number] EXAM DATE: ORDERING PHYSICIAN: UCHE VICTORIA TECHNOLOGIST: Location: [facility] Patient: Misbah Paul : 1940 Visit/Account:[id number] Date of Sevice: 01/08/2018 CT OF THE BRAIN AND CERVICAL SPINE WITHOUT CONTRAST HISTORY: Dizziness and leg numbness PROCEDURE: 3.0 mm contiguous axial sections were performed through the brain AND 2.0 mm axial images were obtained through the cervical spine. Sagittal and coronal reformats were submitted. FINDINGS: BRAIN: Brain and intracranial structures: There is no mass lesion, hemorrhage or acute infarct. Mild diffuse cerebral volume loss. Prominent cavernous carotid atherosclerosis. Mild periventricular hypoattenuat ion likely reflects chronic ischemic change. Orbits (included portions): Normal. Scalp: Normal. Skull: Normal. Paranasal sinuses and mastoid air cells (included portions): Normal. C-SPINE: There is severe multilevel degenerative findings in the cervical spine. There is no cervical spine fr acture or dislocation. Presumed bone island at the skull base on the right. A fracture of the T1 spin ous process is age indeterminant the imaged lung apices are clear. Soft tissues of the neck are unrem arkable. IMPRESSION: 1. No evidence of acute intracranial abnormality. 2. No cervical spine fracture or dislocation. 3. Fracture of the T1 spinous process is age indeterminate. Correlate with point tenderness. 4. Multilevel degenerative findings in the cervical spine. One of the following dose optimization techniques was utilized in the performance of this exam: Autom ated exposure control; adjustment of the mA and/or kV according to the patient's size; or use of an i terative reconstruction technique. Specific details can be referenced in the facility's radiology C T exam operational policy. Report Dictated By: Norman Camp MD at 01/08/2018 4:29 PM Report E-Signed By: Norman Capm MD at 01/08/2018 4:44 PM WSN:[id number]
--- NOTE | 2018-01-08 16:48 | RADIOLOGY IMAGING REPORT ---
FACILITY: [facility] - [place] PATIENT NAME: Misbah Paul : 1940 MR: [id number] V: [id number] EXAM DATE: ORDERING PHYSICIAN: UCHE VICTORIA TECHNOLOGIST: Location: [facility] - [place] Patient: Misbah Paul : 1940 Visit/Account:[id number] Date of Sevice: 01/08/2018 CT OF THE BRAIN AND CERVICAL SPINE WITHOUT CONTRAST HISTORY: Dizziness and leg numbness PROCEDURE: 3.0 mm contiguous axial sections were performed through the brain AND 2.0 mm axial images were obtained through the cervical spine. Sagittal and coronal reformats were submitted. FINDINGS: BRAIN: Brain and intracranial structures: There is no mass lesion, hemorrhage or acute infarct. Mild diffuse cerebral volume loss. Prominent cavernous carotid atherosclerosis. Mild periventricular hypoattenuat ion likely reflects chronic ischemic change. Orbits (included portions): Normal. Scalp: Normal. Skull: Normal. Paranasal sinuses and mastoid air cells (included portions): Normal. C-SPINE: There is severe multilevel degenerative findings in the cervical spine. There is no cervical spine fr acture or dislocation. Presumed bone island at the skull base on the right. A fracture of the T1 spin ous process is age indeterminant the imaged lung apices are clear. Soft tissues of the neck are unrem arkable. IMPRESSION: 1. No evidence of acute intracranial abnormality. 2. No cervical spine fracture or dislocation. 3. Fracture of the T1 spinous process is age indeterminate. Correlate with point tenderness. 4. Multilevel degenerative findings in the cervical spine. One of the following dose optimization techniques was utilized in the performance of this exam: Autom ated exposure control; adjustment of the mA and/or kV according to the patient's size; or use of an i terative reconstruction technique. Specific details can be referenced in the facility's radiology C T exam operational policy. Report Dictated By: Norman Camp MD at 01/08/2018 4:29 PM Report E-Signed By: Norman Camp MD at 01/08/2018 4:44 PM WSN:[id number]
--- NOTE | 2018-01-08 17:14 | ER Report ---
History and Physical Time Seen By MD: 14:20 Hx. of Stated Complaint: PATIENT REPORTS HAVING NUMBNESS IN BILATERAL LEGS THAT CAUSES DROP FOOT ON OCCASION AND RESULTS IN HIM FALLING WHEN WALKING, STATES STARTED ABOUT 3 WEEKS AGO. ALSO RECENTLY IN ER FOR RIB FRACTURES FROM SKIING ACCIDENT HPI/ROS CHIEF COMPLAINT: Unbalanced, foot drop HISTORY OF PRESENT ILLNESS: Patient is a 77-year-old male accompanied by his , who presents the ED with complaint of feeling unbalanced and felt like his right foot has been dropping. He states that he has been noticing this for the past 6 months and it has caused him to fall a couple times. He states that his last fall was a week ago while skiing. He states that he fractured 6th ribs on his right side at that time. He has been following up with Dr. Grimes, surgery. He states that he has noted a slight cough but no fever. He has not noted any shortness of breath. He states that he has pain in his chest but only in the right side of his chest assumes that this is from his rib fractures. He states that it is worse with deep breathing and coughing. He has been taking some oxycodone for pain relief which has caused him to be dizzy intermittently as well. He denies any shortness of breath. He denies any back pain. He also denies any head injury when he was skiing. Dr. Grimes, surgery, did see him today and was concerned with this dizziness and that he does not have a primary care provider. He advised him to follow-up in the emergency room for further evaluation. REVIEW OF SYSTEMS: Constitutional: No fever, no chills. Eyes: No discharge. ENT: No sore throat. Cardiovascular: See history of present illness. No palpitations. Respiratory: See history of present illness. Gastrointestinal: No abdominal pain, no vomiting. Genitourinary: No hematuria. Musculoskeletal: See history of present illness. Skin: No rashes. Neurological: No headache. Allergies: Coded Allergies: Penicillins (Verified Allergy, Unknown, 01/08/18) Sulfa (Sulfonamide Antibiotics) (Verified Allergy, Unknown, 01/08/18) benazepril (Verified Allergy, Unknown, 01/08/18) Home Meds Active Scripts Potassium Chloride (POTASSIUM CHLORIDE) 20 Meq Tab.er.prt, 1 TAB PO QDAY, #5 TAB 0 Refills Prov:RAVIN TIERNEY MD 01/08/18 Furosemide (FUROSEMIDE) 20 Mg Tablet, 1 TAB PO QDAY, #5 TAB 0 Refills Prov:RAVIN TIERNEY MD 01/08/18 Oxycodone/Acetaminophen (OXYCODONE/ACETAMINOPHEN 5MG/325 MG) 5 Mg/325 Mg Tab, 1- 2 TAB PO Q4H Y for PAIN, #40 TAB 0 Refills Prov:RAVIN TIERNEY MD 01/03/18 Docusate Sodium (DOCUSATE SODIUM) 100 Mg Capsule, 1 CAP PO BID, #30 CAPSULE 0 Refills Prov:RAVIN TIERNEY MD 01/03/18 Reported Medications Niacinamide (NIACINAMIDE) 500 Mg Tablet, 500 MG PO BID 01/02/18 Omeprazole (OMEPRAZOLE) 20 Mg Capsule.dr, 1 CAP PO QDAY, CAP 01/02/18 Minocycline Hcl (MINOCYCLINE HCL) 100 Mg Capsule, 100 MG PO BID, CAPSULE 01/02/18 Hydroxyzine Hcl (HYDROXYZINE HCL) 10 Mg Tablet, 10 MG PO QHS 01/02/18 Prednisone (PREDNISONE) 20 Mg Tablet, 10 MG PO QDAY, TAB 12/18/17 Buspirone Hcl (BUSPIRONE HCL) 15 Mg Tablet, 15 MG PO QHS 06/03/17 Discontinued Reported Medications Tamsulosin Hcl (FLOMAX) 0.4 Mg Cap.er.24h, 0.4 MG PO QDAY, CAP 06/03/17 Reviewed Nurses Notes: Yes Old Medical Records Reviewed: Yes Hx Smoking: No Smoking Status: Former Smoker Exposure to Second Hand Smoke?: No Hx Substance Use Disorder: No Hx Alcohol Use: Yes Constitutional Vital Sign - Last 24 Hours 01/08/18 01/08/18 01/08/18 01/08/18 14:23 14:24 14:26 14:30 Temp 98.5 Pulse 66 Resp 18 B/P (MAP) 140/88 140/88 (105) 139/90 (106) 118/73 (88) Pulse Ox 90 O2 Delivery Room Air 01/08/18 01/08/18 01/08/18 01/08/18 14:43 15:00 15:13 15:43 Pulse 68 77 73 Resp 20 25 18 B/P (MAP) 116/62 (80) Pulse Ox 88 92 94 01/08/18 01/08/18 01/08/18 01/08/18 16:00 16:05 16:20 16:35 Pulse 65 63 71 Resp 14 15 15 B/P (MAP) 116/66 (83) Pulse Ox 94 95 01/08/18 16:40 Pulse 62 Resp 17 Physical Exam General Appearance: The patient is alert, has no immediate need for airway protection and no signs of toxicity. Patient appears to be in no acute distress. Eyes: Pupils equal and round no pallor or injection. EOMs are full bilaterally. ENT, Mouth: Mucous membranes are moist. Respiratory: There are no retractions, lungs are clear to auscultation. Cardiovascular: Regular rate and rhythm. Gastrointestinal: Abdomen is soft and non tender, no masses, bowel sounds normal. Neurological: Cranial nerves II through XII intact. Normal finger to nose test bilaterally. Normal Romberg. He does have 4/5 strength of bilateral dorsiflexion and 5/5 strength on plantar flexion and bilaterally. Skin: Warm and dry, no rashes. Musculoskeletal: Neck is supple non tender. There is trace to 1+ edema of bilateral ankle areas into the foot. PT and DP pulses are 2+ bilaterally normal capillary refill. Normal sensation. DIFFERENTIAL DIAGNOSIS: After history and physical exam differential diagnosis was considered for dizziness including but not limited to peripheral and central causes of vertigo, orthostatic causes including dehydration, and blood loss. Medical Decision Making Data Points Result Diagram: 01/08/18 1440 01/08/18 1440 Laboratory Hematology Test 01/08/18 14:40 01/08/18 17:45 Red Blood Count 4.47 M/uL (4.00-5.60) Mean Corpuscular Volume 91.9 fL (80.0-96.0) Mean Corpuscular Hemoglobin 31.6 pg (26.0-33.0) Mean Corpuscular Hemoglobin Concent 34.4 g/dL (32.0-36.0) Red Cell Distribution Width 14.6 % (11.5-14.5) Mean Platelet Volume 7.5 fL (7.2-11.1) Neutrophils (%) (Auto) 81.0 % (39.4-72.5) Lymphocytes (%) (Auto) 5.8 % (17.6-49.6) Monocytes (%) (Auto) 9.8 % (4.1-12.4) Eosinophils (%) (Auto) 3.2 % (0.4-6.7) Basophils (%) (Auto) 0.2 % (0.3-1.4) Nucleated RBC Relative Count (auto) 0.0 /100WBC Neutrophils # (Auto) 6.3 K/uL (2.0-7.4) Lymphocytes # (Auto) 0.5 K/uL (1.3-3.6) Monocytes # (Auto) 0.8 K/uL (0.3-1.0) Eosinophils # (Auto) 0.2 K/uL (0.0-0.5) Basophils # (Auto) 0.0 K/uL (0.0-0.1) Nucleated RBC Absolute Count (auto) 0.00 K/uL Sodium Level 136 mmol/L (137-145) Potassium Level 3.8 mmol/L (3.5-5.0) Chloride Level 101 mmol/L (98-107) Carbon Dioxide Level 26 mmol/L (22-30) Blood Urea Nitrogen 18 mg/dl (9-21) Creatinine 0.80 mg/dl (0.66-1.25) Glomerular Filtration Rate Calc > 60.0 Random Glucose 116 mg/dl (75-110) Calcium Level 8.8 mg/dl (8.4-10.2) Total Bilirubin 0.6 mg/dl (0.2-1.3) Aspartate Amino Transf (AST/SGOT) 33 U/L (0-35) Alanine Aminotransferase (ALT/SGPT) 46 U/L (0-56) Alkaline Phosphatase 80 U/L (0-126) B-Type Natriuretic Peptide 122 pg/ml (0-100) Total Protein 6.2 gm/dl (6.3-8.2) Albumin 3.3 g/dl (3.5-5.0) Troponin I 0.093 ng/ml Chemistry Test 01/08/18 14:40 01/08/18 17:45 White Blood Count 7.8 k/uL (4.5-11.0) Red Blood Count 4.47 M/uL (4.00-5.60) Hemoglobin 14.1 g/dL (14.0-18.0) Hematocrit 41.1 % (42.0-52.0) Mean Corpuscular Volume 91.9 fL (80.0-96.0) Mean Corpuscular Hemoglobin 31.6 pg (26.0-33.0) Mean Corpuscular Hemoglobin Concent 34.4 g/dL (32.0-36.0) Red Cell Distribution Width 14.6 % (11.5-14.5) Platelet Count 215 K/uL (150-450) Mean Platelet Volume 7.5 fL (7.2-11.1) Neutrophils (%) (Auto) 81.0 % (39.4-72.5) Lymphocytes (%) (Auto) 5.8 % (17.6-49.6) Monocytes (%) (Auto) 9.8 % (4.1-12.4) Eosinophils (%) (Auto) 3.2 % (0.4-6.7) Basophils (%) (Auto) 0.2 % (0.3-1.4) Nucleated RBC Relative Count (auto) 0.0 /100WBC Neutrophils # (Auto) 6.3 K/uL (2.0-7.4) Lymphocytes # (Auto) 0.5 K/uL (1.3-3.6) Monocytes # (Auto) 0.8 K/uL (0.3-1.0) Eosinophils # (Auto) 0.2 K/uL (0.0-0.5) Basophils # (Auto) 0.0 K/uL (0.0-0.1) Nucleated RBC Absolute Count (auto) 0.00 K/uL Glomerular Filtration Rate Calc > 60.0 Calcium Level 8.8 mg/dl (8.4-10.2) Total Bilirubin 0.6 mg/dl (0.2-1.3) Aspartate Amino Transf (AST/SGOT) 33 U/L (0-35) Alanine Aminotransferase (ALT/SGPT) 46 U/L (0-56) Alkaline Phosphatase 80 U/L (0-126) B-Type Natriuretic Peptide 122 pg/ml (0-100) Total Protein 6.2 gm/dl (6.3-8.2) Albumin 3.3 g/dl (3.5-5.0) Troponin I 0.093 ng/ml EKG/Imaging EKG Interpretation 12 lead EKG: Rhythm: Normal sinus rhythm, rate 66 bpm [place]: normal QRS: normal ST segments: No acute ST changes identified. Imaging CXR: IMPRESSION: 1. Multiple right-sided rib fractures again noted with increased pleural density along the lateral aspect right mid thorax adjacent to the fractures. This may represent pleural reaction or hemorrhage No evidence of pneumothorax Small right pleural effusion Mild increase in the bibasilar atelectasis CT Head and C-Spine: IMPRESSION: 1. No evidence of acute intracranial abnormality. 2. No cervical spine fracture or dislocation. 3. Fracture of the T1 spinous process is age indeterminate. Correlate with point tenderness. 4. Multilevel degenerative findings in the cervical spine. One of the following dose optimization techniques was utilized in the performance of this exam: Automated exposure control; adjustment of the mA and/ or kV according to the patient's size; or use of an iterative reconstruction technique. Specific details can be referenced in the facility's radiology CT exam operational policy. Report Dictated By: Norman Camp MD at 01/08/2018 4:29 PM Report E-Signed By: Norman Camp MD at 01/08/2018 4:44 PM ED Course/Re-evaluation ED Course Will obtain labs, EKG, chest x-ray, CT of the head and C-spine. 01/08/2018 5:12:13 pm - all labs and imaging with patient. His chest x-ray does reveal his known rib fractures and a small pleural effusion on the right side with possible small hemorrhage between the lobes. CT the head and neck are normal except for a T1 fracture which is age indeterminate. He is having no pain with palpation of the spinous processes from C-spine down to the lumbar spine. He does have an equivocal troponin and will repeat this at the 3 hour jack. Reviewed previous imaging including a lumbar MRI from 2006 which did reveal severe spinal stenosis. Discussed with patient that his weakness was bilateral dorsiflexion and possible foot drop and could be secondary to his spinal stenosis. Will give him a referral to a spine doctor for this. 01/08/2018 6:34:41 pm - serous troponin is trending downward. Outpatient follow -up with orthopedics for lumbar spine issues. Decision to Disposition Date: Jan 08, 2018 Decision to Disposition Time: 18:35 Depart Departure Latest Vital Signs Vital Signs Date Time Temp Pulse Resp B/P (MAP) Pulse Ox O2 Delivery O2 Flow Rate FiO2 01/08/18 16:40 62 17 01/08/18 16:20 95 01/08/18 16:00 116/66 (83) 01/08/18 14:23 98.5 Room Air Impression: Primary Impression: Ankle weakness Additional Impression: Imbalance Condition: Improved Disposition: HOME OR SELF-CARE Referrals: JULIUS HARRINGTON MD (PCP) [facility] Patient Instructions: Lumbar Spinal Stenosis (ED) Additional Instructions: Rest, ice, heat. Follow-up with primary care provider in orthopedics in 2-3 days. If having any worsening or concerning symptoms may return to the emergency room. Problem Qualifiers UCHE VICTORIA PA-C Jan 08, 2018 17:14
[2018-01-11] MEDS ORDERED: PANT40TA65 PO (17:00)
[2018-01-11] MEDS ORDERED: PER PO (17:00)
[2018-01-11] MEDS ORDERED: IBUP600T22 PO (17:00)
== END 2018-01-08 18:45 | disposition home or self-care (01) ==
LOC: ER 14:14
DX: M48.061 Spinal stenosis, lumbar region without neurogenic claudication (principal); R26.89 Other abnormalities of gait and mobility; M21.371 Foot drop, right foot
CPT/HCPCS: 70450; 71046; 72125; 82040; 82247; 82310; 82374; 82435; 82565; 82947; 83880; 84075; 84132; 84155; 84295; 84450; 84460; 84484; 84520; 85025; 93005; 99283

== ENCOUNTER → 2018-03-16 | Outpatient (CLI) | payer MEDICARE, BC ==
[2018-01-02 11:32] VITALS: BMI 25.6
[~2018-03-16] MED LIST changes: +ALLO-119 PO; +IBUP600T22 PO; +NAPR220C12 PO; +PANT40TA65 PO
== END ==
LOC: LAB 14:50
PROVIDERS: ATTEND Emergency Medicine
DX: S22.49XA Multiple fractures of ribs, unspecified side, initial encounter for closed fracture (principal); G62.9 Polyneuropathy, unspecified; E78.5 Hyperlipidemia, unspecified; E83.51 Hypocalcemia
CPT/HCPCS: 36415; 82306; 82465; 82607; 83718; 84443; 84478

== ENCOUNTER → 2018-03-24 | Outpatient (CLI) | payer MEDICARE, BC ==
[2018-01-02 11:32] VITALS: BMI 25.6
[~2018-03-24] MED LIST changes: +APIX5TAB PO; +HYDR-4225 PO; +IOPAMIDOL 76% 75 ML INFUS BTL 75 ML ONE; +LEVO750T44 PO; +NS 0.9% 25 ML BAG 0 ML ONE; +NS 0.9% 25 ML BAG 50 ML ONE
--- NOTE | 2018-03-24 15:20 | RADIOLOGY IMAGING REPORT ---
FACILITY: [facility] PATIENT NAME: Misbah Paul : 1940 MR: [id number] V: [id number] EXAM DATE: ORDERING PHYSICIAN: JULIUS HARRINGTON TECHNOLOGIST: Location: [facility] Patient: Misbah Paul : 1940 Visit/Account:[id number] Date of Sevice: 03/24/2018 BONE MINERAL DENSITY Provided history: Multiple rib fractures Additional pertinent history: none COMPARISON STUDIES: No relevant priors FINDINGS: LUMBAR SPINE: Degenerative sclerosis in the lumbar spine artifactually elevates bone mineral content. The bone mineral density (BMD) measured from [ L1-L4 ] correlates with a Z-score of 4.8 and a T-scor e of 4.4 which is normal as defined by the World Health Organization. The corresponding risk of fr acture in the lumbar spine is not increased compared with a young adult reference population. LEFT HIP: Total hip region - Z-score 0.4 , T-score -0.4 Femoral neck - Z-score 0.2 , T-score -1.1. The lower of the two measurements is consistent with mild osteopenia as defined by the World Health Organization. The corresponding risk of fracture in the hip is increased 2 times compared with a yo justice adult reference population. IMPRESSION: 1. LUMBAR SPINE: Inaccurate assessment due to degenerative sclerosis. 2. LEFT HIP: consistent with mild osteopenia LEFT Femoral Neck: Bone Mineral Density is 0.931 g/cm2 FRAX WHO Fracture Risk Assessment Tool link: http://www.ramiro.ac.uk/FRAX/index.jsp The next DEXA scan of this patient should include the following sites: LEFT HIP. Lumbar spine can be repeated on the next scan but only useful as a trend from previous dinorah dies. Consider using nondominant forearm. PLEASE NOTE: 1. The World Health Organization defines low BMD as follows: T-score Normal > -1 Osteopenia -1 to -2.5 Osteoporosis < -2.5 without fractures Established osteoporosis < -2.5 with fractures 2. In general, you may wish to consider: Diagnosis Treatment Follow-up DEXA Normal BMD Prevention 2-3 years Osteopenia Prevention/therapy 1-2 years Osteoporosis Therapy Yearly 3. Fracture risk estimated from the T-score is more accurate for vertebral fractures (often spontaneo us) than for hip fractures. Report Dictated By: Wesley Wild MD at 03/24/2018 3:13 PM Report E-Signed By: Wesley Wild MD at 03/24/2018 3:16 PM WSN:[id number]
--- NOTE | 2018-03-24 17:11 | RADIOLOGY IMAGING REPORT ---
FACILITY: [facility] - [place] PATIENT NAME: Misbah Paul : 1940 MR: [id number] V: [id number] EXAM DATE: ORDERING PHYSICIAN: JULIUS HARRINGTON TECHNOLOGIST: Location: [facility] - [place] Patient: Misbah Paul : 1940 Visit/Account:[id number] Date of Sevice: 03/24/2018 CTA CHEST WW/O CNTR (PULM ANG) HISTORY: Near syncope and high D Dimer and elevated white blood cell count ADDITIONAL HISTORY: None. TECHNIQUE: CTA chest with intravenous contrast. Axial imaging acquired following administration of IV contrast timed for maximum opacification of the pulmonary arterial vasculature. Slab 3-D MIP cheikh nstructed images were also created for further evaluation and interpretation. Reconstruction of the [facility] [place] includes multiplanar 2-D in the sagittal and coronal planes and 3-D reconstructed amber nal slab MIP series. 3-D images were created by the technologist. Dose Lowering Technique One of the following dose optimization techniques was utilized in the performance of this exam: Autom ated exposure control; adjustment of the mA and/or kV according to the patient's size; or use of an i terative reconstruction technique. Specific details can be referenced in the facility's radiology C T exam operational policy. CONTRAST: Five mL Isovue-370 COMPARISON: January 01, 2018 FINDINGS: Lungs/pleura: New since the prior study are multiple areas of coarse septal thickening and patchy ar eas of spiculated airspace consolidation most prominent in the upper lobes and superior and posterior segments of both lower lobes. Given the clinical history of elevated white blood cell count this li narda represents a multifocal pneumonia. Heart/vessels: There is a small volume pulmonary emboli in the distal right main pulmonary artery an d in the lobar segmental and subsegmental branches to the right upper lobe. Is a possible tiny amoun t of thrombus in the segmental branch to the right lower lobe. There are moderate coronary artery calcifications Mediastinum/lymph nodes: Negative. Visualized upper abdomen: Small to moderate size hiatal hernia Bones/soft tissues: Multiple subacute right-sided rib fractures are again seen. There are postsurgi cesar changes the right shoulder Additional findings: None IMPRESSION: Findings are consistent with multifocal pneumonia new since January 01, 2018 Small volume pulmonary emboli on the right as described above Small to moderate hiatal hernia Multiple subacute right-sided rib fractures which were present on the December 2017 CT. Results were called to JULIUS HARRINGTON at 03/24/2018 455 PM. Report Dictated By: Arlette Delcid MD at 03/24/2018 4:58 PM Report E-Signed By: Arlette Delcid MD at 03/24/2018 5:08 PM WSN:[id number]
--- NOTE | 2018-03-25 22:56 | RT HOLTER TEST ---
FACILITY: [facility] - [place] PATIENT NAME: WILD CARCAMO : [id number] MR: [id number] V: [id number] EXAM DATE: ORDERING PHYSICIAN: JULIUS HARRINGTON TECHNOLOGIST: CANDY Hook-up date: 2018-03-24 15:10:00 Duration: 23:58:00 Test Indications: SYNCOPE Medications: 642177 QRS complexes 418 Ventricular ectopics which represent <1 % of total QRS comp. 2 Supraventricular ectopics which represent <1 % of total QRS comp. * Paced QRS complexes which represent % of total QRS comp. VENTRICULAR ECTOPY 414 Isolated 0 Bigeminal Cycles 2 Couplets 0 Runs 0 Beats in Runs * Beats LONGEST at * BPM at :: -- * Beats FASTEST at * BPM at :: -- SUPRAVENTRICULAR ECTOPY 2 Isolated 0 Couplets 0 Runs 0 Beats in Runs * Beats LONGEST at * BPM at :: -- * Beats FASTEST at * BPM at :: -- HEART RATES 50 MIN at 06:13:35 2018-03-25 86 AVG 139 MAX at 10:05:11 2018-03-25 LONGEST RR 1.424 secs at 09:01:10 2018-03-25 S-T LEVELS Channel 1 -12.800 mm MIN at 15:10:00 2018-03-24 -12.800 mm MAX at 15:10:00 2018-03-24 Channel 2 -12.800 mm MIN at 15:10:00 2018-03-24 -12.800 mm MAX at 15:10:00 2018-03-24 Channel 3 -12.800 mm MIN at 15:10:00 2018-03-24 -12.800 mm MAX at 15:10:00 2018-03-24 There were no reported symptoms. The patient was predominantly in a sinus rhythm with occasional svitlana tricular ectopy and rare supraventricular ectopy. Confirmed by CARLITA GRIMES ([id number]) on 03/25/2018 10:56:15 PM Referred By: Overread By: CARLITA GRIMES
== END ==
LOC: RAD 01:01
PROVIDERS: ATTEND Emergency Medicine
DX: J18.8 Other pneumonia, unspecified organism (principal); I26.99 Other pulmonary embolism without acute cor pulmonale; K44.9 Diaphragmatic hernia without obstruction or gangrene; R55 Syncope and collapse; R79.89 Other specified abnormal findings of blood chemistry; S22.49XA Multiple fractures of ribs, unspecified side, initial encounter for closed fracture; Z79.52 Long term (current) use of systemic steroids; M85.88 Other specified disorders of bone density and structure, other site
CPT/HCPCS: 77080; 93225; Q9967; 71275

== ENCOUNTER → 2018-03-24 | Outpatient (CLI) | payer MEDICARE, BC ==
[2018-01-02 11:32] VITALS: BMI 25.6
[~2018-03-24] MED LIST changes: -IOPAMIDOL 76% 75 ML INFUS BTL 75 ML ONE; -NS 0.9% 25 ML BAG 0 ML ONE; -NS 0.9% 25 ML BAG 50 ML ONE
--- NOTE | 2018-03-24 15:02 | EKG ---
FACILITY: [facility] - [place] PATIENT NAME: WILD CARCAMO : [id number] MR: [id number] V: [id number] EXAM DATE: ORDERING PHYSICIAN: JULIUS HARRINGTON TECHNOLOGIST: BAN ORNELAS Test Reason : NEAR SYNCOPE Blood Pressure : / mmHG Vent. Rate : 088 BPM Atrial Rate : 088 BPM P-R Int : 150 ms QRS Dur : 080 ms QT Int : 360 ms P-R-T Axes : 067 068 056 degrees QTc Int : 435 ms Normal sinus rhythm Normal ECG No previous ECGs available Confirmed by JULIUS HARRINGTON ([id number]) on 03/24/2018 5:13:46 PM Referred By: Confirmed By:JULIUS HARRINGTON
[2018-03-24 15:20] LABS: PLATELET COUNT, AUTOMATED 243 K/uL (150-450)
== END ==
LOC: LAB 14:06
PROVIDERS: ATTEND Emergency Medicine
DX: R55 Syncope and collapse (principal); R06.00 Dyspnea, unspecified; R79.89 Other specified abnormal findings of blood chemistry
CPT/HCPCS: 36415; 82040; 82247; 82310; 82374; 82435; 82565; 82947; 83880; 84075; 84132; 84155; 84295; 84450; 84460; 84484; 84520; 85025; 85379; 86140

== ENCOUNTER → 2018-04-13 | Outpatient (CLI) | payer MEDICARE, BC ==
[2018-01-02 11:32] VITALS: BMI 25.6
== END ==
LOC: RESP 03-25 00:59
PROVIDERS: ATTEND Emergency Medicine
DX: J98.4 Other disorders of lung (principal)
CPT/HCPCS: 94060; 94726; 94729

== ENCOUNTER → 2018-05-04 | Outpatient (CLI) | payer MEDICARE, BC ==
[2018-01-02 11:32] VITALS: BMI 25.6
--- NOTE | 2018-05-04 14:08 | RADIOLOGY IMAGING REPORT ---
FACILITY: [facility] - [place] PATIENT NAME: Misbah Paul : 1940 MR: [id number] V: [id number] EXAM DATE: ORDERING PHYSICIAN: JULIUS HARRINGTON TECHNOLOGIST: Location: [facility] Patient: Misbah Paul : 1940 Visit/Account:[id number] Date of Sevice: 05/04/2018 2 VIEWS CHEST INDICATION: Recent pneumonia and rib fractures. COMPARISON: 01/08/2018. CTA chest on 03/24/2016. FINDINGS: Cardiomediastinal silhouette and pulmonary vessels within normal limits. There is improved aeration to lungs. No focal area of consolidation. There is no pneumothorax or pleural effusion. No nodule. Upper abdomen is unremarkable. No acute bony abnormality. Old right rib fractures. IMPRESSION: 1. Improved aeration to the lungs. No focal infiltrate. Report Dictated By: Miguelito Ramirez at 05/04/2018 2:01 PM Report E-Signed By: Miguelito Ramirez at 05/04/2018 2:05 PM WSN:[id number]
== END ==
LOC: RAD 13:29
PROVIDERS: ATTEND Emergency Medicine
DX: J18.9 Pneumonia, unspecified organism (principal)
CPT/HCPCS: 71046

== ENCOUNTER → 2018-08-04 | Outpatient (CLI) | payer MEDICARE, BC ==
[2018-01-02 11:32] VITALS: BMI 25.6
[~2018-08-04] MED LIST changes: -BENA10TA4 PO; +BENA10TA55 PO; +FLU180SY11 IM; +PRE5 PO
== END ==
LOC: LAB 14:46
PROVIDERS: ATTEND Emergency Medicine
DX: G62.9 Polyneuropathy, unspecified (principal); Z86.711 Personal history of pulmonary embolism
CPT/HCPCS: 36415; 82607; 85379

== ENCOUNTER → 2018-11-04 | Outpatient (CLI) | payer MEDICARE, BC ==
[2018-01-02 11:32] VITALS: BMI 25.6
[~2018-11-04] MED LIST changes: +CYA1000 PO; +GUAI473L81 PO
[2018-11-04 14:30] LABS: PLATELET COUNT, AUTOMATED 187 K/uL (150-450)
== END ==
LOC: LAB 14:09
PROVIDERS: ATTEND Emergency Medicine
DX: R42 Dizziness and giddiness (principal); E53.8 Deficiency of other specified B group vitamins; R20.8 Other disturbances of skin sensation
CPT/HCPCS: 36415; 82040; 82247; 82310; 82374; 82435; 82565; 82607; 82947; 84075; 84132; 84155; 84295; 84425; 84443; 84450; 84460; 84520; 85007; 85027

== ENCOUNTER → 2018-11-08 | Outpatient (CLI) | payer MEDICARE, BC ==
[2018-01-02 11:32] VITALS: BMI 25.6
[~2018-11-08] MED LIST changes: +GADOBENATE 529MG/1ML 15ML VIAL IVP ONE
--- NOTE | 2018-11-08 15:36 | RADIOLOGY IMAGING REPORT ---
FACILITY: [facility] PATIENT NAME: Misbah Paul : 1940 MR: [id number] V: [id number] EXAM DATE: ORDERING PHYSICIAN: JULIUS HARRINGTON TECHNOLOGIST: Location: [facility] - [place] Patient: Misbah Paul : 1940 Visit/Account:[id number] Date of Sevice: 11/08/2018 EXAMINATION: MRI brain without IV contrast MRI brain with IV contrast HISTORY: Abnormal neurological exam, dizziness. COMPARISON: CT head from 01/08/2018. TECHNIQUE: Multi-planar, multi-sequence brain MRI was performed before and after IV gadolinium. CONTRAST: 15 mL of IV MultiHance gadolinium. FINDINGS: Brain volume: Normal. Sagittal midline structures: Normal. Ventricles: Normal. Acute ischemic changes: No diffusion restriction present to suggest acute ischemia. Hemorrhage: No acute intracranial hemorrhage. Masses/edema: None. Enhancement: No abnormal intracranial enhancement. Aguilar-white: Negative. White matter: A few T2/FLAIR hyperintensities in the shiva and deep white matter bilaterally. Vessels: Normal. Extra-axial: None. Calvarium/scalp: Negative. Skull base: Negative. Visualized sinuses/orbits: Mild mucosal thickening in the bilateral ethmoid air cells. Previous lens surgery on the right. Visualized upper neck: Negative. IMPRESSION: 1. No acute infarct, hemorrhage or intracranial mass lesion. 2. Mild nonspecific white matter disease is suspicious for chronic small vessel ischemia. Report Dictated By: Kely Hartley MD at 11/08/2018 3:26 PM Report E-Signed By: Kely Hartley MD at 11/08/2018 3:30 PM WSN:[email or web address]
== END ==
LOC: MRI 11-05 13:57
PROVIDERS: ATTEND Emergency Medicine
DX: R90.82 White matter disease, unspecified (principal); R29.90 Unspecified symptoms and signs involving the nervous system; R42 Dizziness and giddiness
CPT/HCPCS: 70553; A9577

== ENCOUNTER → 2018-11-11 | Outpatient (CLI) | payer MEDICARE, BC ==
[2018-01-02 11:32] VITALS: BMI 25.6
[~2018-11-11] MED LIST changes: -GADOBENATE 529MG/1ML 15ML VIAL IVP ONE
== END ==
LOC: LAB 08:29
PROVIDERS: ATTEND Emergency Medicine
DX: E53.8 Deficiency of other specified B group vitamins (principal); G62.9 Polyneuropathy, unspecified
CPT/HCPCS: 36415; 82607; 84207; 84425

== ENCOUNTER 2019-02-01 13:00 | Outpatient (RCR) | payer MEDICARE, BC ==
[2018-01-02 11:32] VITALS: BMI 25.6
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
[~2019-02-01 13:00] MED LIST changes: +CALC400T65 PO; +OMEP40CA48 PO; +TAMS0.4C70 PO
--- NOTE | 2019-02-01 17:02 | PT PLAN OF CARE ---
Physician: Dottie Salamanca MD Patient is being seen: 2x/week Therapist: Misbah Prieto, PT, DPT Medical Diagnosis: dizziness, lower extremity weakness Treatment Diagnosis: same Date of Onset: 10/26/18 Date of Initial Evaluation: 11/11/18 Date patient was last seen: 02/01/19 Number of treatments: 16 Number of cancellations/No shows: 1 INTERVENTIONS: Manual Therapy/STM/MET Strengthening/condition Spinal Stabilization Work Hardening/Cond Stretching Neuromuscular Re-ed Closed Chain Program Posture/Body mechanics Gait Trg/Balance Trg Home Exercise Program Therapeutic Activities GOALS: 2 weeks: Pt will demonstrate abolished vestibular system dizziness to improve function and QOL. 8 weeks: Pt will demonstrate increased balance strategies especially when the vestibular system is isolated to 60 seconds or more to improve function and QOL. 8 weeks: Pt will demonstrate 5/5 core and B LE 's to return to prior level of function and improve QOL. PATIENT'S GOAL: improve balance and strength Status of Patient's Goals: MET Patient Compliance: Good Prognosis: Good Reasons for continuing therapy: This is a discharge note for Misbah Humberto. He reports that he feels like his balance and strength have improved; however, he reports that he feels like he needs to be consistent with the rec center and with his balance exercises to maintain or continue to improve. He reports that his neuropathy has made significant changes and only feels numbness on the bottom of his feet versus the whole foot like he was feeling prior to PT. He has demonstrated significant improvements in his balance strategies as he could hold each condition from greater than 60 seconds, which is a significant improvement. He has demonstrated significant improvements in his core and B LE strength. He also has demonstrated decreased neuropathy in his B feet. Furthermore, he is independent with his home exercise program and will be discharged from PT. He has met his goals. As a result, he will be discharge from PT. Posture: He demonstrates minimal rounded shoulder, forward head, minimal increase in thoracic kyphosis. ROM: B LE's: WFL's. Strength: B hip abduction, extension, B knee flexion and extension, B ankle PF and DF: 5/5. B hip adduction: 5/5 Palpation: Special Tests: 5 sit to/from standin seconds. 6 minute walk test: 1454 feet Mobility: Independent If you have any questions, please contact me at [phone]. Thank you, Misbah Prieto, PT, DPT MTDD
== END 2019-02-01 18:00 | disposition home or self-care (01) ==
LOC: PT 13:00
PROVIDERS: ATTEND Emergency Medicine
DX: R42 Dizziness and giddiness (principal); R29.898 Other symptoms and signs involving the musculoskeletal system; G62.9 Polyneuropathy, unspecified
CPT/HCPCS: 97161